=== PATIENT | male | born 1995 | race Caucasian/White ===

== ENCOUNTER 2018-06-17 16:48 | Emergency (ER) | payer OTHER ==
[2018-06-17] MEDS ORDERED: HYDROCODONE/APAP 5/325MG TABLET PO ONE (17:30)
[2018-06-17] MEDS ORDERED: Diph,Pert(Acell),Tet Vac 0.5 ML SYR IM ONE (17:36)
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
[2018-06-17] MEDS ORDERED: HYDROMORPHONE HCL 2 MG/ML VIAL IVP ONE (18:14)
[2018-06-17] MEDS ORDERED: ONDANSETRON HCL IV 4 MG/2 ML VIAL IVP ONE (18:15)
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
== END 2018-06-17 19:43 | disposition short-term general hospital (02) ==
LOC: ER 16:48
DX: T65.891A Toxic effect of other specified substances, accidental (unintentional), initial encounter (principal); T23.462A Corrosion of unspecified degree of back of left hand, initial encounter; T23.461A Corrosion of unspecified degree of back of right hand, initial encounter; T22.412A Corrosion of unspecified degree of left forearm, initial encounter; T22.411A Corrosion of unspecified degree of right forearm, initial encounter; Y92.63 Factory as the place of occurrence of the external cause; Y99.0 Civilian activity done for income or pay; F17.210 Nicotine dependence, cigarettes, uncomplicated
CPT/HCPCS: 90715; 96372; 99285